=== PATIENT | male | born 1950 | race Caucasian/White ===

== ENCOUNTER → 2024-01-28 | Outpatient (CLI) | payer OTHER ==
[2024-01-28] MEDS: REGADENOSON 0.4 MG/5 ML PF SYG IVP ONE (15:08)
== END | disposition home or self-care (01) ==
LOC: SHCH 09:05
PROVIDERS: ATTEND Internal Medicine Cardiovascular Disease
DX: I25.10 Atherosclerotic heart disease of native coronary artery without angina pectoris (principal)
CPT/HCPCS: 78452; 96374; 93017; J2785; A9500 ×2

== ENCOUNTER 2024-08-17 05:56 | Day surgery (SDC) | payer OTHER ==
[2024-08-15 08:38] LABS: BASOPHILS # (AUTO) 0.03 K/uL (0.00-0.20); BASOPHILS % (AUTO) 0.7 % (0.0-5.0); EOSINOPHILS # (AUTO) 0.14 K/uL (0.00-0.70); EOSINOPHILS % (AUTO) 3.1 % (0.0-8.0); HEMATOCRIT 41.9 % (42-54); IMMATURE GRANULOCYTE ABSOLUTE 0.01 K/uL (0-1); LYMPHOCYTES # (AUTO) 1.5 K/uL (1.0-4.8); LYMPHOCYTES % (AUTO) 31.7 % (21.0-51.0); MEAN CORPUSCULAR HEMOGLOBIN 30.7 pg (27.0-33.0); MEAN CORPUSCULAR HGB CONC 33.9 g/dL (32.0-36.0); MEAN CORPUSCULAR VOLUME 90.7 fL (79-99); MONOCYTES # (AUTO) 0.5 K/uL (0.1-1.0); MONOCYTES % (AUTO) 10.5 % (3.0-13.0); NEUTROPHILS # (AUTO) 2.5 K/uL (1.8-7.7); NEUTROPHILS % (AUTO) 53.8 % (40.0-77.0); PLATELET COUNT (AUTO) 205 K/uL (130-400); RED BLOOD CELL COUNT(AUTO) 4.62 MIL/uL (4.50-6.20); RED CELL DISTRIBUTION WIDTH 13.1 % (11.0-15.5); WHITE BLOOD COUNT (AUTO) 4.6 K/uL (4.8-10.8)
--- NOTE | 2024-08-15 08:42 | EKG ---
[facility] Test Date: 2024-08-15 Test Time: 09:21:22 Pat Name: SAV HERNANDEZ Department: [facility] Room: Gender: M Night Filler: [id number] : 1950 Requested By: JAI CERVANTES Order Number: [id number] Reading MD: Myriam Leiva Measurements Intervals [place] Rate: 62 P: 66 NM: 187 QRS: 8 QRSD: 156 T: 57 QT: 507 QTc: 514 Interpretive Statements Sinus rhythm Left bundle branch block No previous ECG available for comparison Electronically Signed On 08-16-2024 05:16:15 PASTRY BAKER by Myriam Leiva Please click the below link to view image of tracing.
[2024-08-15 08:45] VITALS: BP 168/88; PULSE 58; RESP 18; TEMP 98.1
[2024-08-15 08:46] LABS: APPEARANCE,URINE CLEAR (CLEAR); BILIRUBIN,URINE NEGATIVE (NEGATIVE); COLOR,URINE LIGHT-YELLOW (YELLOW); GLUCOSE, URINE (UA) NEGATIVE (NEGATIVE); KETONES,URINE NEGATIVE (NEGATIVE); LEUKOCYTE ESTERASE ,URINE 25 Leu/uL (NEGATIVE); NITRATE,URINE NEGATIVE (NEGATIVE); OCCULT BLOOD,URINE NEGATIVE (NEGATIVE); PROTEIN,URINE NEGATIVE (NEGATIVE); UROBILINOGEN,URINE 0.2 mg/dL (0.2-1.0)
[2024-08-15 08:48] LABS: INR 1.01 (0.85-1.15); PROTHROMBIN TIME 10.9 SEC (9.6-11.6)
[2024-08-15 08:49] LABS: PARTIAL THROMBOPLASTIN TIME 28.8 SEC (26.3-35.5)
[2024-08-15 08:50] LABS: ADD UA MICROSCOPIC YES
[2024-08-15 08:51] LABS: CREATININE 0.9 mg/dL (0.5-1.3); POTASSIUM 4.6 mmol/L (3.5-5.1)
[2024-08-15 08:56] LABS: BACTERIA,URINE RARE /HPF (None Seen); MUCUS,URINE RARE LPF (None Seen); SQUAMOUS EPITHELIAL CELL,UR RARE /HPF (0-2)
[2024-08-15 08:57] LABS: B-TYPE NATRIURETIC PEPTIDE 28 pg/mL (0-100)
--- NOTE | 2024-08-15 09:45 | HMCIMG ---
CHEST 1VW REASON: PRE OP COMPARISON: None. FINDINGS: Single view of the chest was obtained. Lungs are clear. Heart size is normal. There is no pulmonary vascular congestion. Mediastinum and bony thorax appear unremarkable. IMPRESSION: 1. Normal single view chest x-ray.
--- NOTE | 2024-08-16 10:31 | NUR ---
RE: LABS REPORTED UA RESULTS TO SADIA LUCIANO NP. PATIENT ASYMPTOMATIC. NO NEW ORDERS RECEIVED. (PENDING URINE CX RESULTS)
[2024-08-17] VITALS (9 sets, daily range): BP systolic 116–151; BP diastolic 57–75; PULSE 61–69; RESP 13–16; TEMP 97.7–98.1
[~2024-08-17] VITALS: Ht 177.8 cm; Wt 83.8 kg
[~2024-08-17 05:56] MED LIST: ASPI-1521 PO; BUSP15TA3 PO; FINA5TAB41 PO; FLUO20TA29 PO; HYDR-3421 PO; LORA10TA7 PO; MIRT7.5T11 PO; OXCA150T27 PO; PRIM250T24 PO; ROPI2TAB53 PO; ROSU40TA88 PO; TURMERIC PO
[2024-08-17] MEDS: 0.9%NACL 1000ML 1,000 ML IV ONE (06:53)
[2024-08-17] MEDS ORDERED: LIDOCAINE HCL 400MG/20ML VIAL ONE (07:08)
[2024-08-17] MEDS ORDERED: NITROGLYCERIN 50MG VIAL ONE (07:09)
[2024-08-17] MEDS ORDERED: HEParin 10,000 UNIT/10ML (1,000 UNIT/ML) VIAL ONE (07:09)
[2024-08-17] MEDS ORDERED: HEParin-NS 1,000 UNIT/500 ML 1,000 ML IV ONE (07:09)
[2024-08-17] MEDS ORDERED: IOHEXOL 350 MG/ML 100ML INFUS..BTL IV ONE (07:09)
[2024-08-17] MEDS ORDERED: IOHEXOL-350 50ML VIAL IV ONE (07:16)
[2024-08-17] MEDS ORDERED: FENTanyl CITRate PF 50 MCG/1 ML 2ML VIAL ONE (07:36)
[2024-08-17] MEDS ORDERED: MIDAZOLAM HCL 1 MG/ML 2ML VIAL ONE (07:36)
[2024-08-17] MEDS: 0.9%NACL 1000ML 1,000 ML IV SCH (09:05)
--- NOTE | 2024-08-17 09:05 | NUR ---
PT RETURNS S/P LHC, RT GROIN SOFT, NONTENDER, PERCLOSE W DSG CLEAN, DRY, INTACT. DISTAL PULSES BASELINE, PT DENIES ALL C/O OR NECESSITY, VSS, AT BEDSIDE FOR DR Hayes CERVANTES REVIEW OF FINDINGS. CONTINUE TO MONITOR.
--- NOTE | 2024-08-17 09:16 | PRN ---
DATE OF PROCEDURE: 08/17/2024 PROCEDURE PERFORMED: LEFT HEART CATHETERIZATION, LEFT VENTRICULOGRAM, LEFT AND RIGHT SELECTIVE CORONARY ANGIOGRAM, RIGHT COMMON FEMORAL ANGIOGRAM, PERCLOSE SUTURE CLOSURE OF THE RIGHT COMMON FEMORAL ARTERY, AND CONSCIOUS SEDATION [employer] REVIEWER: JAI CERVANTES MD, [facility] INDICATION: ABNORMAL LEXISCAN CARDIOLITE STRESS TEST 01/28/2024 DEMONSTRATING MODERATE ANTERIOR AND SEPTAL ISCHEMIA WELL EVIDENCE OF PRIOR INFERIOR INFARCT WITH GATED EF OF 51%. PROCEDURE NOTE: After informed consent was obtained the patient was prepped and draped in the usual sterile fashion. A 6 [place] arterial sheath was inserted in the right femoral artery using a micropuncture technique, with ultrasound guidance, with a front wall, first pass puncture. This was performed after fluoroscopic identification of bony landmarks to facilitate a more accurate puncture of the right common femoral artery. The arterial sheath was aspirated and flushed. A 6 [place] pigtail catheter was then advanced over a J-tipped guidewire to the ascending aorta and was prolapsed into the left ventricle. The catheter was aspirated and flushed and pressure measurements were obtained. A left ventriculogram was then performed in a 30 AUGUST projection. A pullback procedure was then performed, and this catheter was removed over a J-tipped guidewire. A 6F JL-4 was then advanced to the ascending aorta over a J-tipped guidewire, was aspirated and flushed, and was used for selective left coronary angiograms in multiple obliquities. A 6F JR-4 was advanced in a similar fashion to the ascending aorta over a J-tipped guidewire and was used for selective right coronary angiograms in multiple obliquities with findings as outlined below. A right common femoral angiogram was performed to assess suitability for Perclose suture closure and the Perclose device was deployed in standard fashion. Perclose suture closure was successful without bleeding or hematoma. The patient tolerated the procedure well and was returned to the holding area in stable condition. FINDINGS: LEFT HEART HEMODYNAMICS: Patient's LVEDP prior to LV-gram was 8 mm of mercury, and after LV-gram 13 mm of mercury. There was no aortic valve gradient on pullback procedure. LEFT VENTRICULOGRAM: A left ventriculogram in a 30 degree AUGUST projection demonstrated normal LV systo lic function and segmental wall motion (borderline normal hypokinesis) with an LVEF by visual estimate of 50-55%. Biplane left ventriculogram demonstrated an LVEF of 54%. CORONARY ANGIOGRAM: LEFT MAIN: The left main coronary is normal. LEFT ANTERIOR DESCENDING: The left anterior descending is anatomically small and part due to a large ramus intermediate and left circumflex system. The proximal LAD tapers rapidly consistent with a 30-40% tubular stenosis. At the bifurcation from the 1st diagonal there is an additional 30-40% tubular stenosis followed by an anatomically small mid to distal and distal LAD without any discrete stenosis. The diagonal one branch had a 20% proximal stenosis. The diagonal two branches small. LEFT CIRCUMFLEX: The left circumflex is nondominant and terminates after a large OM1 which trifurcates near the posterolateral wall. The left circumflex AV groove branch terminates as a distal OM2 vessel. The left circumflex and its branches are normal. RAMUS INTERMEDIATE BRANCH: The ramus intermediate was large and normal. RIGHT CORONARY ARTERY: The right coronary artery was dominant and at the acute marginal branch fanned into 4 branches one of which extended into a small PDA vessel. The PDA was anatomically small due to the fan of acute marginal branches that extended toward the inferior wall. IMPRESSION: Abnormal Lexiscan Cardiolite stress test demonstrating fixed inferior defect and moderate anterior and septal ischemia due to anatomically small LAD and PDA vessels. Single-vessel coronary artery disease with 30-40% proximal LAD stenosis and 30- 40% mid LAD stenosis with otherwise normal coronary arteries. Normal LV systolic function with LVEF of 50-55%. No . No MR. RECOMMENDATION: Continued aggressive lipid management and heart healthy diet and lifestyle changes. Consider low LDL goal of 55. COMPLICATIONS OF PROCEDURE: None, the patient tolerated the procedure well and was returned to his room in stable condition. HEMOSTASIS: Perclose suture closure was successful without bleeding or hematoma. ESTIMATED BLOOD LOSS: 5 mL. CONTRAST TOTAL: 145 mL JAI CERVANTES MD Aug 17, 2024 09:16
--- NOTE | 2024-08-17 10:00 | NUR ---
VSS AND RT GROIN REMAINS STABLE, TOLERATING MEAL W/OUT N/V. PT COMPLIANT WITH LIMITATION & PROGRESSION OF MOVEMENT.
--- NOTE | 2024-08-17 11:00 | NUR ---
500 ML IVF PRIOR INFUSED IN AGED OR DISABLED CARE WORKER, VOIDING PER URINAL, VSS & GROIN BENIGN, BASELINE PULSES, POSITION OF COMFORT, CONTINUE PROGRESSION TO SITTING POSITION. PRELIM D/C INSTRUCTIONS COVERED , & patient voice understanding.
--- NOTE | 2024-08-17 12:40 | NUR ---
PT AMBULATES STEADILY TO VOID, GROIN REMAINS SOFT, DRY, NON TENDER, HEMOSTATIC. ASSIST DRESS, PIV HL REMOVED W TIP INTACT. PT W/ ALL BELONGINGS TO 'S CAR & CARE IN NO VOICED OR NOTED DISTRESS.
== END 2024-08-17 12:45 | disposition home or self-care (01) ==
LOC: DAH 05:56
PROVIDERS: ATTEND Internal Medicine Cardiovascular Disease
DX: R94.39 Abnormal result of other cardiovascular function study (principal); I25.10 Atherosclerotic heart disease of native coronary artery without angina pectoris; I10 Essential (primary) hypertension; E78.5 Hyperlipidemia, unspecified; G20.C Parkinsonism, unspecified; F43.10 Post-traumatic stress disorder, unspecified; I44.7 Left bundle-branch block, unspecified; Z98.890 Other specified postprocedural states; Z88.6 Allergy status to analgesic agent; Z80.0 Family history of malignant neoplasm of digestive organs; Z79.01 Long term (current) use of anticoagulants; Z79.899 Other long term (current) drug therapy
CPT/HCPCS: 80048; 83880; 85025; 85610; 85730; 87086; 81001; 36415; 71045; 93005; 93458; C1894 ×2; C1760; Q9965 ×2; J3010; J3490 ×2; J7030; J2250; J1644; Q9967 ×2; A4215; A4222; A4221; A4663; A4216; A4606; A4223 ×3; 99156; 99157